=== PATIENT | female | born 1960 | race African-American/Black ===

== ENCOUNTER 2017-08-10 13:54 | Emergency (ER) | payer MEDICAID ==
[~2017-08-10] VITALS: Ht 170.2 cm; Wt 82.0 kg
[2017-08-10 18:37] VITALS: BP 122/83
== END 2017-08-10 19:11 | disposition home or self-care (01) ==
LOC: ER 13:54
DX: M25.552 Pain in left hip (principal); H54.62 Unqualified visual loss, left eye, normal vision right eye; I10 Essential (primary) hypertension; W01.0XXA Fall on same level from slipping, tripping and stumbling without subsequent striking against object, initial encounter; Y93.9 Activity, unspecified; Y92.9 Unspecified place or not applicable
CPT/HCPCS: 73502; 99284